=== PATIENT | female | born 1950 | race Caucasian/White ===

== ENCOUNTER → 2016-07-15 | Outpatient (CLI) | payer OTHER ==
--- NOTE | 2016-07-15 16:43 | US ---
Thyroid ultrasound 1205 hours. History: Evaluate thyromegaly. Findings: Right lobe thyroid: There is diffuse heterogeneous echotexture throughout the right lobe of the thyro id. There is also diffuse increase color flow enhancement. Within the midportion right lobe of the th yroid posteriorly there is a isoechoic solid nodule with hypoechoic smooth margin that measures 13 x 10 x 9 mm. There is marginal as well as internal color flow enhancement. No additional nodules are se en on the right. The right lobe of the thyroid in total measures 5.6 x 2.1 x 2.5 cm in longitudinal, AP, and transverse dimensions. Left lobe thyroid: There is diffuse heterogeneous echotexture to the left lobe of the thyroid. There is diffuse increase in color flow enhancement. Subtle incidental isoechoic nodule with hypoechoic rim is seen along the posterior aspect lower pole left lobe of the thyroid measuring 5.4 x 4.1 x 3.8 mm. Subtle marginal enhancement is noted. The left lobe of the thyroid in total measures 5.0 x 1.9 x 2.1 cm. There is no significant lymphadenopathy within the neck. Impression: 1. Diffuse heterogeneous echotexture involving the right and left lobes of the thyroid with diffuse i ncrease in color flow enhancement and mild increase in size. Rule out underlying thyroiditis. 2. Subtle benign-appearing isoechoic solid nodule mid right lobe of the thyroid posteriorly as well s maller nodule lower pole left lobe of the thyroid posteriorly. Each of these has a probably benign ap pearance. Consider followup ultrasound in one year to confirm stability and benign features.
== END ==
LOC: BMCIMAGING 11:32
PROVIDERS: ATTEND Internal Medicine
DX: E04.1 Nontoxic single thyroid nodule (principal)
CPT/HCPCS: 76536-PO

== ENCOUNTER → 2017-06-01 | Outpatient (CLI) | payer OTHER | LOC: FIMAGING 13:58 | PROVIDERS: ATTEND Internal Medicine | DX: Z12.31 Encounter for screening mammogram for malignant neoplasm of breast (principal); N60.01 Solitary cyst of right breast | CPT/HCPCS: G0202 ==

== ENCOUNTER → 2017-10-15 | Outpatient (CLI) | payer OTHER | LOC: FIMAGING 10:45 | PROVIDERS: ATTEND Internal Medicine | DX: E04.1 Nontoxic single thyroid nodule (principal) ==

== ENCOUNTER → 2018-04-06 | Outpatient (CLI) | payer OTHER | LOC: BHFA 14:45 | PROVIDERS: ATTEND Internal Medicine Cardiovascular Disease | DX: R07.9 Chest pain, unspecified (principal); I77.810 Thoracic aortic ectasia ==

== ENCOUNTER → 2018-04-14 | Outpatient (CLI) | payer OTHER | LOC: BHFA 11:00 | PROVIDERS: ATTEND Internal Medicine Cardiovascular Disease | DX: R07.9 Chest pain, unspecified (principal); I77.810 Thoracic aortic ectasia ==

== ENCOUNTER → 2018-04-28 | Outpatient (CLI) | payer OTHER | LOC: BHFA 11:30 | PROVIDERS: ATTEND Internal Medicine Interventional Cardiology | DX: R07.9 Chest pain, unspecified (principal); I71.9 Aortic aneurysm of unspecified site, without rupture ==

== ENCOUNTER → 2018-05-17 | Outpatient (CLI) | payer OTHER ==
[~2018-05-17] MED LIST: IOPAMIDOL (ISOVUE 370) 100 ML BTL IV ONE
== END ==
LOC: FIMAGING 09:39
PROVIDERS: ATTEND Internal Medicine Cardiovascular Disease
DX: I77.819 Aortic ectasia, unspecified site (principal); I42.2 Other hypertrophic cardiomyopathy
CPT/HCPCS: 75574; Q9967; 82565-PO

== ENCOUNTER → 2018-06-03 | Outpatient (CLI) | payer OTHER | LOC: FIMAGING 13:07 | PROVIDERS: ATTEND Internal Medicine | DX: Z12.31 Encounter for screening mammogram for malignant neoplasm of breast (principal) ==

== ENCOUNTER → 2018-06-21 | Outpatient (CLI) | payer OTHER | LOC: BMCIMAGING 09:23 | PROVIDERS: ATTEND Internal Medicine | DX: Z13.820 Encounter for screening for osteoporosis (principal); M85.832 Other specified disorders of bone density and structure, left forearm; Z78.0 Asymptomatic menopausal state; R29.890 Loss of height ==

== ENCOUNTER → 2018-09-27 | Outpatient (CLI) | payer OTHER | LOC: BMCIMAGING 08:36 | PROVIDERS: ATTEND Physician Assistant | DX: M22.41 Chondromalacia patellae, right knee (principal) ==

== ENCOUNTER → 2018-09-28 | Outpatient (CLI) | payer OTHER | LOC: FIMAGING 07:49 | PROVIDERS: ATTEND Physician Assistant | DX: M23.021 Cystic meniscus, posterior horn of medial meniscus, right knee (principal); M76.31 Iliotibial band syndrome, right leg; M94.8X6 Other specified disorders of cartilage, lower leg; M25.461 Effusion, right knee ==

== ENCOUNTER → 2018-11-24 | Outpatient (CLI) | payer OTHER | LOC: FIMAGING 09:56 | PROVIDERS: ATTEND Internal Medicine | DX: E04.1 Nontoxic single thyroid nodule (principal) ==